=== PATIENT | female | born 1970 | race Hispanic/Latino ===

== ENCOUNTER → 2019-06-12 | Outpatient (CLI) | payer OTHER, SELFPAY ==
[~2019-06-12] MED LIST: DULO30CA2 PO; LEVO25TA9 PO; METF-446 PO
== END | disposition home or self-care (01) ==
LOC: RAH 08:15
PROVIDERS: ATTEND Internal Medicine
DX: K76.0 Fatty (change of) liver, not elsewhere classified (principal); Z90.49 Acquired absence of other specified parts of digestive tract
CPT/HCPCS: 76700